=== PATIENT | male | born 1970 | race Caucasian/White ===

== ENCOUNTER → 2018-08-20 | Outpatient (CLI) | payer OTHER, MEDICARE | END | disposition home or self-care (01) | LOC: CT 08:44 | DX: K40.20 Bilateral inguinal hernia, without obstruction or gangrene, not specified as recurrent (principal); M47.899 Other spondylosis, site unspecified ==

== ENCOUNTER → 2018-10-21 | Day surgery (SDC) | payer OTHER, MEDICARE ==
[~2018-10-21] MED LIST: ATORVASTATIN CA20 M1 PO; CLONAZEPAM1 MG PO; GABAPENTIN600 MG PO; LISINOPRIL20 MG PO
--- NOTE | ~2018-10-21 | PROC NOTE ---
[place], [place] PROCEDURE NOTE NAME: ETIENNE GARBER UNIT #: [id number] ROOM: DOCTOR: JERRY PUGH MD BIRTHDATE: [birth year] DOS: 10/21/2018 PREOPERATIVE DIAGNOSES: Epigastric pain, left lower quadrant pain. POSTOPERATIVE DIAGNOSES: Normal esophagogastroduodenoscopy and colonoscopy. PROCEDURE: EGD and colonoscopy. ENDOSCOPIST: Jerry Pugh MD. SOFTWARE INTERN: ALIYAH. ANESTHESIA: MAC. INDICATIONS: This is a 48-year-old gentleman with a history of epigastric and left lower quadrant pain who is here for a workup with EGD and colonoscopy. The procedure and its complications were explained to the patient in detail preoperatively. Complications that were discussed included but were not limited to, bleeding, colon perforation, stomach perforation, and missed lesions. He agreed to proceed. DESCRIPTION OF PROCEDURE: After identifying the patient, the patient was brought to the endoscopy suite and placed in the left lateral position. After time-out procedure was called, IV sedation was administered by the anesthesia team and a bite block was placed. The EGD was performed first. An adult gastroscope was introduced into the mouth and advanced sequentially into the pharynx, esophagus, stomach and the first 2 parts of the duodenum. There were no obvious lesions that could be identified. The scope was retroflexed in the stomach and no other lesions could be identified. The scope was then withdrawn and attention was turned towards the colonoscopy and a digital rectal exam was performed, which was within normal limits. An adult colonoscope was now introduced into the anal canal and advanced sequentially into the rectum, sigmoid colon, descending colon, transverse colon and ascending colon up to the cecum. The prep was found to be suboptimal in certain areas and suction and saline irrigation was used to suck out the stool. Upon reaching the cecum, the scope was withdrawn. The entire colon was within normal limits and there were no obvious lesions that could be identified. After the scope was withdrawn, the patient was brought back to the recovery in a stable fashion. Based on this finding, the patient is recommended to have another colonoscopy in 10 years or sooner if he had new symptoms. These findings were discussed with the patient's family in the recovery room. [place], [place] PROCEDURE NOTE NAME: ETIENNE GARBER UNIT #: [id number] ROOM: DOCTOR: JERRY PUGH MD BIRTHDATE: [birth year] Jerry Pugh MD CM:PROCNOTE:PROCEDURE NOTE [id number] JERRY PUGH MD
[2018-10-21 07:20] VITALS: BP 130/83
[2018-10-21 08:37] VITALS: BP 155/103
[2018-10-21 08:52] VITALS: BP 149/98
[2018-10-21 09:07] VITALS: BP 168/99
[2018-10-21 09:16] VITALS: BP 152/88
== END | disposition home or self-care (01) ==
LOC: SDC 10-18 11:00
DX: R10.32 Left lower quadrant pain (principal); R10.13 Epigastric pain; I10 Essential (primary) hypertension; E78.5 Hyperlipidemia, unspecified; M19.90 Unspecified osteoarthritis, unspecified site; G43.909 Migraine, unspecified, not intractable, without status migrainosus; F17.210 Nicotine dependence, cigarettes, uncomplicated; F32.9 Major depressive disorder, single episode, unspecified; F41.9 Anxiety disorder, unspecified; F12.90 Cannabis use, unspecified, uncomplicated; E66.01 Morbid (severe) obesity due to excess calories; Z79.899 Other long term (current) drug therapy; Z98.890 Other specified postprocedural states; Z88.8 Allergy status to other drugs, medicaments and biological substances